=== PATIENT | male | born 1945 | race Caucasian/White ===

== ENCOUNTER 2016-11-22 08:50 | Emergency (ER) | payer OTHER, MEDICARE ==
--- NOTE | 2016-11-22 10:04 | ER PHYSICIAN DOCUMENTATION ---
Physician Documentation [facility] Name:Santos Clayton Age:71 yrs Sex:Male :1945 Arrival Date:11/22/2016 Time:08:50 BedTrauma-B Private MD:Gus Finn ED, Scott Disposition: 11/22/16 09:33 Discharged to Home/Self Care. Impression: Supracondylar Humerus Fracture. - Condition is Good. - Discharge Instructions: ELBOW FRACTURE. - Prescriptions for Hydrocodone- Acetaminophen 5-325 mg Oral Tablet - take 1 tablet by ORAL route every 6 hours As needed; 20 tablet. - Medical Reconciliation form form. - Follow up: Dago Claudio MD, David Martinez DO; When: 2 - 3 days; Reason: Continuance of care. - Problem is new. - Symptoms have improved. HPI: 11/22 09:24 This 71 yrs old Male presents to ER with complaints of Shoulder Injury. sc 09:24 The patient or guardian complains of an injury. The complaint affects the patient's sc dominant side (right). Context: The problem was sustained outdoors, resulted from a fall, while walking, The patient experiences decreased range of motion, The patient reports no obvious deformity. Onset: The symptom(s)/episode began/occurred just prior to arrival. Associated signs and symptoms: The patient has no apparent associated signs or symptoms. Historical: - Allergies: IODINEIODINE CONTAINING; - Tetanus: unable to assess. - Ebola Screening: : Patient denies exposure to infectious person. Patient denies travel to an Ebola-affected area in the 21 days before illness onset. . - Social history: Smoking status: unknown if patient ever smoked tobacco. ROS: 09:25 Constitutional: Negative for fever, chills, and weight loss. sc Eyes: Negative for injury, pain, redness, and discharge. Neck: Negative for injury, pain, and swelling. Cardiovascular: Negative for chest pain, palpitations, and edema. Respiratory: Negative for shortness of breath, cough, wheezing, and pleuritic chest pain. Abdomen/GI: Negative for abdominal pain, nausea, vomiting, diarrhea, and constipation. Back: Negative for injury and pain. Skin: Negative for injury, rash, and discoloration. 09:25 Neuro: Negative for headache, weakness, numbness, tingling, and seizure. sc 09:25 MS/extremity: Positive for injury or acute deformity, pain, Negative for paresthesias, tingling. Exam: Constitutional: This is a well developed, well nourished patient who is awake, alert, and in no acute distress. Head/Face: Normocephalic, atraumatic. Neck: Trachea midline, no thyromegaly or masses palpated, and no cervical lymphadenopathy. Supple, full range of motion without nuchal rigidity, or vertebral point tenderness. No meningismus. Back: No spinal tenderness. No costovertebral tenderness. Full range of motion. 09:26 Skin: Warm, dry with normal turgor. Normal color with no rashes, no lesions, and no sc evidence of cellulitis. 09:26 Musculoskeletal/extremity: Extremities: grossly normal except: pain, ROM: limited active range of motion due to pain, limited passive range of motion due to pain, Circulation is intact in all extremities. Sensation intact. 09:27 Musculoskeletal/extremity: Extremities: Joints: All joints are normal except sc deformity, dislocation, effusion, limited range of motion, painful range of motion, tenderness. Vital Signs: 10:00 BP 146 / 70; Pulse 82; Pulse Ox 95% ; st Procedures: 09:28 Splinting: Splint applied to right elbow using carie wrap, Scotchcast applied by myself. sc Examined by me, post splint application: neurovascular intact, Patient tolerated well. MDM: 08:54 Patient medically screened. ri 09:28 Differential diagnosis: suspect nondisplaced supracondular fx, possible radial head sc involvement. Data reviewed: vital signs, nurses notes, radiologic studies, and as a result, I will discharge patient. Physician consultation: Dago Claudio MD was called at 09:29, was contacted at 09:29, and will see patient in office, next week. 11/22 09:34 Order name: Elevate and Ice Pack; Complete Time: : ri 11/22 09:34 Order name: ORTHO: Shoulder Immobilizer; Complete Time: : ri 11/22 09:34 Order name: ORTHO: Splint; Complete Time: :34 ri Dispensed Medications: No medications were administered Signatures: Carly Davis RN RN st Chew, Scott, MD MD ri
--- NOTE | 2016-11-22 10:04 | ER NURSING DOCUMENTATION ---
Nurse's Notes [facility] Name:Santos Clayton Age:71 yrs Sex:Male :1945 Arrival Date:11/22/2016 Time:08:50 BedTrauma-B Private MD:Gus Finn Diagnosis:Supracondylar Humerus Fracture Presentation: 11/22 08:55 Acuity: RICHAR 2 st 10:00 Presenting complaint: Patient states: pt fell forward onto his right arm while golfing. st pt now has right elbow pain. Transition of care: patient was not received from another setting of care. 10:00 Method Of Arrival: Private Vehicle st Triage Assessment: 10:00 General: Appears in no apparent distress, Behavior is cooperative. Pain: Complains of st pain in right elbow. Musculoskeletal: Reports pain in right elbow and right arm. Historical: - Allergies: IODINEIODINE CONTAINING; - Tetanus: unable to assess. - Ebola Screening: : Patient denies exposure to infectious person. Patient denies travel to an Ebola-affected area in the 21 days before illness onset. . - Social history: Smoking status: unknown if patient ever smoked tobacco. Screenin:25 Nutritional screening: No deficits noted. st Vital Signs: 10:00 BP 146 / 70; Pulse 82; Pulse Ox 95% ; st ED Course: 08:52 Patient arrived in ED. arc 08:52 Gus Finn MD is Private Physician. arc 08:54 William Hunt MD is Attending Physician. sc 08:55 Carly Davis RN is Primary Nurse. st 08:[address] 09:13 Port Xray Completed. pm1 09:32 Dago Claudio MD, David Martinez DO is Referral Physician. sc 09:50 Assist Provider Assist provider with fracture care Immobilized with OCL splint, Post st immobilization, circulation, motor and sensation remain intact. 10:00 Sling applied to right arm. st 14:25 Valuables Remains with patient. st Administered Medications: No medications were administered Outcome: 09:33 Discharge ordered by . sc 10:04 Patient [address] the ED[address] st Signatures: Carly Davis RN RN st William Hunt MD MD ga [place] pm1 Madeleine Hunt, Reg Reg arc
--- NOTE | 2016-11-24 12:30 | RADIOLOGY REPORT ---
Three views of the right elbow demonstrate findings raising concern for nondisplaced medial epicondyle fracture. No other fracture or dislocation is identified. Mild scattered degenerative changes are noted. Small olecranon spur is identified. IMPRESSION: 1. Scattered degenerative changes of the right elbow. 2. Question nondisplaced medial epicondyle fracture. If clinically indicated, further evaluation with CT scanning may be of benefit. MTDD
== END 2016-11-22 10:04 | disposition home or self-care (01) ==
LOC: ER 08:50
DX: S42.414A Nondisplaced simple supracondylar fracture without intercondylar fracture of right humerus, initial encounter for closed fracture (principal); W19.XXXA Unspecified fall, initial encounter; Y92.89 Other specified places as the place of occurrence of the external cause; Y93.01 Activity, walking, marching and hiking
CPT/HCPCS: 29105; 99284